=== PATIENT | female | born 1970 | race Two or more races ===

== ENCOUNTER 2016-11-13 12:30 | Emergency (ER) | payer MEDICAID, OTHER ==
[~2016-11-13] VITALS: Ht 160 cm; Wt 56.7 kg
[~2016-11-13 12:30] MED LIST: NO REPORTABLE MEDS
--- NOTE | 2016-11-13 12:38 | NUR ---
Presents self to ed due to chest pain, non radiating x 24 . Patient is aao3, appears in no acute distress, respiration even and unlabored. No sob noted. Patient's vss. afebrile. Pt with hx of anxiety. MD Roque at [facility]
--- NOTE | 2016-11-13 12:41 | NUR ---
testing tech at
--- NOTE | 2016-11-13 12:57 | NUR ---
staff cytotechnologist at [facility]
[2016-11-13 13:23] VITALS: BP 135/86
--- NOTE | 2016-11-13 13:23 | NUR ---
Patient discharged to home in stable condition. Written and verbal after care instructions given. Patient verbalizes understanding of instruction.
== END 2016-11-13 13:24 | disposition home or self-care (01) ==
LOC: EDUNIT# 12:30 → ER 12:32
DX: B34.9 Viral infection, unspecified (principal)
CPT/HCPCS: 71010; 93005 ×2; 99284; A4606; Z7610